=== PATIENT | male | born 1960 | race African-American/Black ===

== ENCOUNTER 2021-09-28 19:55 | Emergency (ER) | payer OTHER ==
[2021-09-28] MEDS ORDERED: Aspirin Chewable 81 MG TAB ONE (22:54)
[2021-09-28 22:59] LABS: SARS-CoV-2 NAA Rapid Test Not Detected (NotDetected)
== END 2021-09-29 01:15 | disposition short-term general hospital (02) ==
LOC: NAV ERS 19:55
DX: S82.002A Unspecified fracture of left patella, initial encounter for closed fracture (principal); Z20.822 Contact with and (suspected) exposure to COVID-19; E11.9 Type 2 diabetes mellitus without complications; E78.5 Hyperlipidemia, unspecified; E03.9 Hypothyroidism, unspecified; M10.9 Gout, unspecified; Z79.84 Long term (current) use of oral hypoglycemic drugs; Z79.899 Other long term (current) drug therapy; W21.05XA Struck by basketball, initial encounter
CPT/HCPCS: U0002